=== PATIENT | female | born 1940 | race Caucasian/White ===

== ENCOUNTER 2017-06-17 09:27 | Outpatient (CLI) | payer MEDICARE, BC ==
--- NOTE | 2017-06-17 18:44 | RAD ---
RIGHT HIP TWO VIEWS: 06/17/17 Comparison is made with an 12/13/08 study. There has been very little exchange clerk the interval. The joint space remains normal in width. Arthrit ic changes are minimal. The articular surfaces are smooth. IMPRESSION: No significant findings. POS: [facility]
== END 2017-06-17 09:28 | disposition home or self-care (01) ==
LOC: BURRAD 09:27
PROVIDERS: ATTEND Family Medicine
DX: M25.551 Pain in right hip (principal)

== ENCOUNTER 2018-03-01 08:34 | Emergency (ER) | payer MEDICARE, BC ==
--- NOTE | 2018-03-01 09:28 | CT ---
CT OF BRAIN PERFORMED WITHOUT CONTRAST ENHANCEMENT: HISTORY: Fall with head injury. COMPARISON: 07/22/2015 study. FINDINGS: The ventricular and cisternal system shows fairly age-appropriate change. There are no signs of intr acerebral hemorrhage or extraaxial fluid collections. Mastoid air cells and visualized sinuses are c lear. There is right periorbital soft tissue swelling present. IMPRESSION: No acute intracranial abnormalities. POS: [facility]
--- NOTE | 2018-03-01 09:32 | CT ---
CT OF CERVICAL SPINE PERFORMED WITHOUT CONTRAST ENHANCEMENT: History: Fell with neck pain. FINDINGS: The vertebral bodies are normal in height. Disc spaces are all relatively well preserved. Some congen ital appearing narrowing to the C2-3 levels present. The facets are in normal alignment. There is no evidence of any significant canal stenosis. At the C5-6 level there is some mild left sided foraminal narrowing. At C6-7 there is some borderline left sided foraminal narrowing. There is no CT evidence for fracture. The lung apices are clear. IMPRESSION: No CT evidence of fracture of the cervical spine. POS: [facility]
--- NOTE | 2018-03-01 09:32 | CT ---
CT OF FACIAL BONES PERFORMED WITHOUT CONTRAST ENHANCEMENT: HISTORY: The patient fell and hit head. FINDINGS: The nasal bone and zygomatic arches are intact. No air fluid levels are seen within the sinuses. Th ere are no signs of any orbital or maxillary fractures. Pterygoid processes are intact. There is right-sided periorbital soft tissue swelling seen. The mandible was intact and condyles are in normal position. IMPRESSION: No CT evidence of fracture of the facial bones. POS: [facility]
== END 2018-03-01 09:32 | disposition home or self-care (01) ==
LOC: BURERS 08:34
DX: S01.01XA Laceration without foreign body of scalp, initial encounter (principal); K21.9 Gastro-esophageal reflux disease without esophagitis; M19.90 Unspecified osteoarthritis, unspecified site; I10 Essential (primary) hypertension; Z79.899 Other long term (current) drug therapy; W19.XXXA Unspecified fall, initial encounter; Y92.481 Parking lot as the place of occurrence of the external cause
CPT/HCPCS: 70450; 70486; 72125

== ENCOUNTER 2018-11-14 14:12 | Emergency (ER) | payer MEDICARE, BC ==
[2018-11-14] MEDS ORDERED: Ondansetron PF 4 MG/2 ML Vial ONE (15:13)
[2018-11-14 15:16] LABS: #Lymphocytes 1.6 thou/uL (1.20-3.40); #Monocytes 0.6 thou/uL (0.11-0.59); #Neutrophils 11.8 thou/uL (1.40-6.50); %Basophils 0.2 % (0.0-1.0); %Eosinophils 0.1 % (0.0-10.0); %Lymphocytes 11.1 % (21.0-51.0); %Neutrophils 84.5 % (42.0-75.0); Hemoglobin 12.4 g/dL (12.0-16.0); Mean Corpuscular HGB CONC 33.5 g/dL (32.0-36.0); Mean Corpuscular Hemoglobin 32.7 pg (27.0-31.0); Mean Corpuscular Volume 97.5 fL (78.0-98.0); Mean Platelet Volume 5.9 fL (7.4-10.4); Platelet Count 265 thou/uL (130-400); RBC Distribution Width 11.7 % (11.5-14.5); White Blood Cell (WBC) Count 13.9 thou/uL (4.8-10.8)
[2018-11-14 15:30] LABS: ALT (SGPT) 15 U/L (8-55); AST (SGOT) 18 U/L (5-34); Albumin 4.3 g/dL (3.4-4.8); Alkaline Phosphatase 78 U/L (40-110); Anion Gap 14 mmol/L (10-20); BUN (Urea Nitrogen) 18 mg/dL (9.8-20.1); Bilirubin, Total 0.5 mg/dL (0.2-1.2); Calc. Creatinine Clearance 0 mL/min (70-130); Calcium 9.4 mg/dL (7.8-10.44); Carbon Dioxide 26 mmol/L (23-31); Chloride 96 mmol/L (98-107); Estimated GFR-MDRD 90; Globulin 2.7 g/dL (2.4-3.5); Glucose 112 mg/dL (83-110); Lipase 15 U/L (8-78); Potassium 4.1 mmol/L (3.5-5.1); Sodium 132 mmol/L (136-145)
[2018-11-14 16:12] LABS: Bilirubin Negative (Negative); Blood, Urine Negative (Negative); Clarity Clear (Clear); Glucose, Urine (Dipstick) Negative (Negative); Leukocyte Negative (Negative); Nitrite Negative (Negative); Protein, Urine (Dipstick) Negative (Neg-Trace); Urobilinogen 0.2 mg/dL (Less than 2)
== END 2018-11-14 16:54 | disposition home or self-care (01) ==
LOC: BURERS 14:12
DX: K52.9 Noninfective gastroenteritis and colitis, unspecified (principal); R11.2 Nausea with vomiting, unspecified; I10 Essential (primary) hypertension; K21.9 Gastro-esophageal reflux disease without esophagitis; M19.90 Unspecified osteoarthritis, unspecified site; Z79.899 Other long term (current) drug therapy
CPT/HCPCS: 80053; 81003; 83690; 85025; 87086; 93005; 96361; 96374; J2405

== ENCOUNTER 2023-12-25 08:19 | Emergency (ER) | payer MEDICARE ==
[2023-12-25] MEDS ORDERED: Acetaminophen 325 MG TAB ONE (08:48)
[2023-12-25] MEDS ORDERED: cefTRIAXone (ROCEPHIN) 2 GM VIAL ONE (08:48)
[2023-12-25] MEDS ORDERED: Sodium Chloride 0.9% 100 ML ONE (08:49)
[2023-12-25 08:51] LABS: #Eosinophils 0.1 thou/uL (0.0-0.7); #Lymphocytes 0.3 thou/uL (1.20-3.40); #Monocytes 0.5 thou/uL (0.11-0.59); #Neutrophils 3.5 thou/uL (1.40-6.50); %Basophils 0.8 % (0.0-1.0); %Eosinophils 2.7 % (0.0-10.0); %Lymphocytes 6.1 % (21.0-51.0); %Monocytes 10.7 % (0.0-10.0); %Neutrophils 79.8 % (42.0-75.0); Hematocrit 35.2 % (36.0-47.0); Mean Corpuscular HGB CONC 34.1 g/dL (32.0-36.0); Mean Corpuscular Hemoglobin 33.7 pg (27.0-31.0); Mean Corpuscular Volume 98.8 fl (78.0-98.0); Mean Platelet Volume 6.2 fL (7.4-10.4); Platelet Count 133 10x3/uL (130-400); RBC Distribution Width 10.6 % (11.5-14.5); Red Blood Cell (RBC) Count 3.56 mill/uL (4.20-5.40); White Blood Cell (WBC) Count 4.4 10x3/uL (4.8-10.8)
[2023-12-25 09:04] LABS: Base Excess-Venous -1.1 mmol/L (-2.0 to 3.0); Bicarbonate (HCO3v) 22.3 mmol/L (22.0-28.0); CO2 Tension (PvCO2) 32.3 mmHg (42.0-51.0); Calcium, Ionized 1.04 mmol/L (1.15-1.33); Chloride 97 mmol/L (98-107); Hemoglobin - Calc 12.6 g/dL (12.0-16.0); Potassium 3.6 mmol/L (3.5-5.1); Sodium 133 mmol/L (138-145); T. Carbon Dioxide 23.3 mmol/L (22.0-28.0); vO2 Saturation-calc 56.8 % (60.0-85.0)
[2023-12-25 09:10] LABS: ALT (SGPT) 59 U/L (8-55); AST (SGOT) 43 U/L (5-34); Albumin 3.7 g/dL (3.4-4.8); Alkaline Phosphatase 74 U/L (40-110); Anion Gap 16 mmol/L (10-20); BUN (Urea Nitrogen) 20 mg/dL (9.8-20.1); Bilirubin, Total 0.5 mg/dL (0.2-1.2); Calc. Creatinine Clearance 0 mL/min (70-130); Calcium 8.3 mg/dL (7.8-10.44); Carbon Dioxide 21 mmol/L (23-31); Chloride 100 mmol/L (98-107); Estimated GFR 73; Globulin 2.4 g/dL (2.4-3.5); Glucose 129 mg/dL (83-110); Potassium 3.7 mmol/L (3.5-5.1); Protein, Total 6.1 g/dL (5.8-8.1); Sodium 133 mmol/L (136-145)
[2023-12-25] MEDS ORDERED: Vancomycin 1 GM VIAL ONE (09:45)
[2023-12-25] MEDS ORDERED: Vancomycin HCl 750 MG VIAL ONE (09:45)
[2023-12-25 11:52] LABS: Bilirubin Negative (Negative); Blood, Urine Negative (Negative); Clarity Cloudy (Clear); Glucose, Urine (Dipstick) Negative (Negative); Ketone, Urine 80 mg/dL (Negative); Leukocyte Negative (Negative); Nitrite Negative (Negative); Protein, Urine (Dipstick) 30 mg/dL (Neg-Trace); Urobilinogen 0.2 mg/dL (Less than 2); pH, Urine 5.5 (5.0-9.0)
[2023-12-25 11:58] LABS: Bacteria/HPF 2+ HPF (None Seen); CAUTI Indications for Culture Dysuria,urgency,freq; RBC/HPF None Seen HPF (0-3); Squamous Epithelial 0-3 HPF (0-3); WBC/HPF 0-3 HPF (0-3)
[2023-12-25 12:00] LABS: Urine Culture Reflex No No
== END 2023-12-25 15:03 | disposition short-term general hospital (02) ==
LOC: BURERS 08:19
DX: A41.9 Sepsis, unspecified organism (principal); J18.9 Pneumonia, unspecified organism; I10 Essential (primary) hypertension; E03.9 Hypothyroidism, unspecified; K21.9 Gastro-esophageal reflux disease without esophagitis; Z79.899 Other long term (current) drug therapy
CPT/HCPCS: 71045; 71250; 80053; 81001; 82330; 82435; 82803; 83605; 84132; 84295; 85014; 85025; 87040; 87086; 87428; 94760; J0696; J3370 ×2; 36415; 51701; 96365; 96366; 96367